=== PATIENT | male | born 1985 | race Caucasian/White ===

== ENCOUNTER 2021-05-19 15:31 | Emergency (ER) | payer MEDICAID, OTHER ==
[~2021-05-19] VITALS: Ht 170.2 cm; Wt 75.0 kg
[2021-05-19] MEDS ORDERED: KETOROLAC 60MG/2ML VIAL IM ONE (16:30)
[2021-05-19] MEDS ORDERED: METHOCARBAMOL 500MG TABLET PO ONE (16:30)
[2021-05-19] MEDS ORDERED: HYDROCODONE/ACETAMINOPHEN 5/325MG TABLET PO ONE (16:30)
[2021-05-19] MEDS ORDERED: LIDOCAINE 5% PATCH TOP SCH (16:30)
[2021-05-19] MEDS ORDERED: METH-653 MT (18:20)
[2021-05-19] MEDS ORDERED: IBUP-2028 MT (18:20)
[2021-05-19] MEDS ORDERED: LIDO1ADH5 TP (18:20)
[2021-05-19 18:33] VITALS: BP 126/74
== END 2021-05-19 18:35 | disposition home or self-care (01) ==
LOC: ER 15:48
DX: M54.2 Cervicalgia (principal); S29.012A Strain of muscle and tendon of back wall of thorax, initial encounter; X58.XXXA Exposure to other specified factors, initial encounter; Y93.89 Activity, other specified; Y92.89 Other specified places as the place of occurrence of the external cause; Y99.8 Other external cause status; M62.838 Other muscle spasm
CPT/HCPCS: 72040; 73030; 96372; 99284; J1885; Z7610